=== PATIENT | female | born 1990 | race Caucasian/White ===

== ENCOUNTER 2022-07-27 13:52 | Outpatient (CLI) | payer BC, SELFPAY | END 2022-07-27 13:53 | disposition home or self-care (01) | PROVIDERS: Visit Provider Otolaryngology | DX: G25.81 Restless legs syndrome (principal); R68.89 Other general symptoms and signs | CPT/HCPCS: 82728; 84443 ==

== ENCOUNTER 2023-06-28 15:05 | Outpatient (CLI) | payer OTHER, SELFPAY | END 2023-06-28 15:06 | disposition home or self-care (01) | LOC: LKVREF 15:06 | PROVIDERS: PCP Family Medicine; Visit Provider Emergency Medicine | DX: Z01.818 Encounter for other preprocedural examination (principal) | CPT/HCPCS: 80048 ==

== ENCOUNTER 2023-07-01 08:30 | Day surgery (SDC) | payer OTHER, SELFPAY ==
[2023-07-01] VITALS (12 sets, daily range): BP systolic 102–119; BP diastolic 60–77; PULSE 63–105; RESP 12–16; TEMP 36.4–36.7; O2SAT 98–100; BMI 24.8
[2023-07-01] MEDS: LACTATED RINGERS 1000 ML 1,000 ML 100 ML IV (08:50)
[2023-07-01 09:10] LABS: Ur HCG Qualitative* Negative (Negative)
[2023-07-01] MEDS: SODIUM CHLORIDE 0.9 % (FLUSH) 10 ML SYRINGE IVF (09:16)
[2023-07-01] MEDS: OXYMETAZOLINE 0.05% NASAL SPRAY 2 SPRAY NOSTRIL-B (09:30)
[2023-07-01] MEDS: COCAINE HCL 4 % 4 ML SOLUTION NOSTRIL-B (10:59)
--- NOTE | 2023-07-01 11:00 | W.ANESCHARGE ---
Anesthesia Charges Start Date/Time Anesthesia Start Date: 07/01/23 Anesthesia Start Time: 10:42 Stop Date/Time Anesthesia Stop Date: 07/01/23 Anesthesia Stop Time: 11:34
[2023-07-01] MEDS: BUPIVACAINE 0.5%/EPINEPHRINE 0.9 MG (30.9 ML) INJECTION (11:04)
[2023-07-01] MEDS: AYR SALINE NASAL GEL 1 APPLIC NOSTRIL-B (11:08)
[2023-07-01] MEDS: MUPIROCIN 1 GM PACKET 1 APPLIC TOPICAL (11:22)
--- NOTE | 2023-07-01 11:35 | W.ANESCHARGE ---
Anesthesia Charges Start Date/Time Anesthesia Start Date: 07/01/23 Anesthesia Start Time: 10:42 Stop Date/Time Anesthesia Stop Date: 07/01/23 Anesthesia Stop Time: 11:34
--- NOTE | 2023-07-01 12:36 | W.PM.ENTPROC ---
Procedure Note Date of procedure: 07/01/23 Procedure: Preoperative diagnosis right middle turbinate michael bullosa, chronic right maxillary rhinosinusitis, deviated septum, nasal obstruction, right inferior turbinate hypertrophy Postoperative diagnosis same Procedure nasal septoplasty, endoscopic partial resection right middle turbinate michael bullosa, endoscopic right maxillary antrostomy with tissue removal, submucous partial resection right inferior turbinate Under general endotracheal anesthesia patient was prepped and draped in usual fashion. The nose was decongested with cocaine pledgets and injected. The left area 4 septal deflection was resected by incising anterior to this in the septum mucosa elevating mucosa on either side and removing the septal spur. A piece of this was trimmed returned to intraseptal space. There is a left premaxillary wing deformity that was removed in a similar fashion was mostly cartilaginous. A stab incision was made in the anterior of the right inferior turbinate a tunnel created with a Gabriel dissector. A conservative anterior submucous resection was performed. The Coblation was used for hemostasis and to cauterize intramurally along the inferior 10% in the posterior head. With the aid of a 0 degree scope the michael bullosa was incised along its inferolateral aspect. This was then infractured with a Gautier forceps to create a normal with. The inferior 3rd of the uncinate process was taken down exposing natural ostium to maxillary sinus. This was occluded by polypoid tissue which was removed in a 9 mm antrostomy created. A moderate amount of polypoid tissue was removed from the floor of the sinus. A Merocel pack was trimmed lengthwise and placed in the middle meatus on each side. The patient procedure well was taken recovery in satisfactory condition. Blood loss was less than 25 mL. Surgeon: Raheem Colvin MD
[2023-07-01] MEDS: IBUPROFEN 200 MG TABLET PO (12:50)
[2023-07-01] MEDS: OXYCODONE 5 MG TABLET PO (12:50)
== END 2023-07-01 13:03 | disposition home or self-care (01) ==
LOC: OR 08:32
PROVIDERS: PCP Emergency Medicine; Visit Provider Otolaryngology
PROC: (CPT 31231; principal; 2023-07-01 10:00)
DX: J34.2 Deviated nasal septum (principal); J32.0 Chronic maxillary sinusitis; J34.3 Hypertrophy of nasal turbinates
CPT/HCPCS: 30520; 30140; 31267; 31240; 00160; 81025; 88305; A9270; J0330; J1100; J2250; J2405; J2704; J3010; J7120